=== PATIENT | male | born 1950 | race Caucasian/White ===

== ENCOUNTER 2022-02-08 02:39 | Inpatient (IN) | payer MEDICARE, SELFPAY ==
[2022-02-08] VITALS (12 sets, daily range): BP systolic 136–171; BP diastolic 77–95; PULSE 53–87; RESP 15–22; TEMP 36.1–36.9; O2SAT 96–100; BMI 37.2
--- NOTE | 2022-02-08 | ECHO_ITS ---
Patient Info Name: Alex Kay Jr Age: 71 years : 1950 Gender: Male Ht: 71 in Wt: 240 lbs BSA: 2.37 m2 HR: 61 bpm BP: 136 / 85 mmHg Heart Rhythm: Sinus Rhythm Exam Date: 02/08/2022 11:20 AM Exam Location: [facility] Pulmonary Patient Status: Outpatient Admit Date: 02/08/2022 Staff Ordering Physician: Nayely Strange MD Senior Solutions Engineer: Leland Samuel, DENISE, RT Attending Provider: Cinthia Virk MD Referring Physician: Alie ARCHER; Exam Type: CA echo dop color flow w con Study Info Indications R07.89 - Other chest pain Complete two-dimensional, color flow and Doppler transthoracic echocardiogram is performed with contrast to opacify the left ventricle and to improve the deliniation of the left ventricle endocardial borders. Summary 1. Left ventricular chamber dimension is normal. 2. Left ventricular systolic function is normal, estimated at 65-70%. 3. There is mildly increased left ventricular wall thickness. 4. The left ventricular diastolic function is grade I diastolic dysfunction. 5. Left atrial chamber dimension is mildly enlarged. 6. There is mild mitral valve regurgitation. 7. There is mild tricuspid valve regurgitation. Left Ventricle Left ventricular chamber dimension is normal. Left ventricular systolic function is normal, estimated at 65-70%. There is mildly increased left ventricular wall thickness. The left ventricular diastolic function is grade I diastolic dysfunction. Right Ventricle Right ventricular chamber dimension is normal. Right ventricular systolic function is normal. Left Atria Left atrial chamber dimension is mildly enlarged. Right Atria Right atrial chamber dimension is normal. Atrial Septum Intact interatrial septum visualized by color flow imaging. Aortic Valve The aortic valve is trileaflet. There is mild aortic valve sclerosis. There is no aortic valve stenosis. There is trace aortic valve regurgitation. Pulmonic Valve The pulmonic valve is normal. There is no pulmonic valve stenosis. There is trace pulmonic regurgitation. Mitral Valve The mitral valve has normal leaflets. There is no mitral valve stenosis. There is mild mitral valve regurgitation. Tricuspid Valve The tricuspid valve leaflets are normal. There is no significant tricuspid valve stenosis. There is mild tricuspid valve regurgitation. No pulmonary hypertension, estimated pulmonary arterial systolic pressure is 25 mmHg. Pericardium/Pleural The pericardium appears normal. There is no pericardial effusion. Inferior Vena Cava Normal inferior vena cava with >50% collapse upon inspiration consistent with normal right atrial pressure, 5 mmHg. Aorta The aortic root size at the sinus of Valsalva is normal. Left Ventricular Outflow Tract Name Value Normal LVOT 2D LVOT Diameter 2.10 cm LVOT Doppler LVOT Peak Gradient 6 mmHg LVOT Mean Gradient 3 mmHg LVOT VTI 23.47 cm LVOT VTI/AV VTI Ratio 0.82 LVOT Stroke Volume 81.40 ml
--- NOTE | ~2022-02-08 | US_ITS ---
EXAMINATION: US retroperitoneal comp DATE: 02/09/2022 10:21 INDICATION: Acute kidney injury TECHNIQUE: Multiple grayscale and Doppler ultrasound images of the kidneys were obtained. COMPARISON: CT from yesterday FINDINGS: The right kidney measures 11.1 x 7.2 x 5.8 cm and contains a 2.3 cm cyst. The left kidney m easures 10.1 x 6.2 x 5.0 cm and contains a 1.9 cm cyst. The kidneys demonstrate normal parenchymal ec hogenicity. There is no hydronephrosis. The bladder is normal. IMPRESSION: 1. Bilateral renal cysts, otherwise normal kidneys without hydronephrosis. Reviewed, dictated and finalized at location L.
--- NOTE | ~2022-02-08 | US_ITS ---
EXAMINATION: US carotid duplex BI DATE: 02/08/2022 11:11 INDICATION: Presyncope TECHNIQUE: Grayscale, color Doppler, and pulsed Doppler images of the cervical carotid arteries were obtained. The degree of vessel stenosis is placed in one of the following categories: normal, <50%, 5 0-69%, >=70% but less than near-occlusion, near-occlusion, or total occlusion. Note that percent sten osis relative to normal distal artery lumen diameter is indirectly measured from velocity measurement s as described by Shiva, et al. Radiology 2003; 229:340-346. COMPARISON: None. FINDINGS: RIGHT: The right common carotid artery (CCA) peak systolic velocity (PSV) is 113 cm/s. The right internal ca rotid artery (ICA) PSV is 80 cm/s. The right ICA end-diastolic velocity (EDV) is 24 cm/s. The right I CA/CCA PSV ratio is 0.7. Grayscale and color Doppler images yield an estimate of <50% diameter reduct ion from plaque in the ICA. The external carotid artery (ECA) PSV is 82 cm/s. There is antegrade flow in the right vertebral artery. LEFT: The left CCA PSV is 124 cm/s. The left ICA PSV is 82 cm/s. The left ICA EDV is 30 cm/s. The left ICA/ CCA PSV ratio is 0.7. Grayscale and color Doppler images yield an estimate of <50% diameter reduction from plaque in the ICA. The ECA PSV is 80 cm/s. There is antegrade flow in the left vertebral artery . IMPRESSION: 1. <50% stenosis in the right internal carotid artery. 2. <50% stenosis in the left internal carotid artery. Reviewed, dictated and finalized at location A.
--- NOTE | ~2022-02-08 | XR_ITS ---
EXAMINATION: XR chest 2V DATE: 02/08/2022 03:16 INDICATION: Left-sided chest pain and tightness. TECHNIQUE: PA and lateral views of the chest were obtained. COMPARISON: None FINDINGS: Small calcified nodules at the right midlung zone and left lower lung zone consistent with old granul omatous disease. No focal airspace opacities, pulmonary edema, pleural effusion or pneumothorax. The cardiomediastinal silhouette is normal. Cholecystectomy clips in right upper quadrant. There are brid ging osteophytes at multiple levels in the spine, consistent with diffuse idiopathic skeletal hyperos tosis (DISH). IMPRESSION: 1. No acute cardiopulmonary disease. Reviewed, dictated and finalized at location A.
--- NOTE | ~2022-02-08 | NM_ITS ---
EXAMINATION: NM nagi stress w perfusion DATE: 02/09/2022 09:42 INDICATION: Chest pressure TECHNIQUE: Rest images were obtained following intravenous administration of 11.1 mCi Tc99m tetrofosm in (Myoview). The patient was infused intravenously with Lexiscan (Regadenoson). Then, 35.6 mCi Tc99m tetrofosmin (Myoview) was administered intravenously, and stress images were obtained. Data was elina nstructed into short axis and horizontal and vertical long axis SPECT images. Gated SPECT images were also obtained. COMPARISON: None. FINDINGS: There is no definite reversible or fixed perfusion abnormality to suggest ischemia or infar ction. There is normal left ventricular chamber size, wall motion and ejection fraction. Left ventr icular ejection fraction measures >70%. IMPRESSION: 1. Normal myocardial perfusion at rest and during stress. 2. Left ventricular ejection fraction measuring >70%. Reviewed, dictated and finalized at location A.
--- NOTE | ~2022-02-08 | CT_ITS ---
EXAMINATION: CT abdomen pelvis w con INDICATION: Left lower quadrant pain, elevated lipase TECHNIQUE: Computed tomographic images of the abdomen and pelvis were obtained after the administrati on of 100 cc of Omnipaque 300 intravenous contrast. The dose-length product (DLP) was 1439.19 mGy-cm. Automated exposure control and iterative reconstruction technique were employed. COMPARISON: None available FINDINGS: Minimal dependent atelectasis is present in the lung bases. The heart size is normal. There is calcified coronary artery atherosclerosis. The gallbladder is surgically absent. The liver is dif fusely low in attenuation when compared with the spleen, consistent with hepatic steatosis. There is a subtle 1.5 cm hypoattenuating area in the tail of the pancreas. Cysts of the kidneys measure up to 2.6 cm on the right. No pathologically enlarged abdominal or pelvic lymph nodes are identified. There is no free intraperitoneal gas or evidence of bowel obstruction. There is a surgical anastomosis at the rectosigmoid junction in the colon There are bridging osteophytes at multiple levels in the lower thoracic spine, consistent with diffuse idiopathic skeletal hyperostosis (DISH). . IMPRESSION: 1. Subtle area of hypoattenuation in the tail of the pancreas. The differential diagnosis includes ne oplasm, benign or malignant, and sequela of pancreatitis. Follow-up with by MRI without and with cont rast is recommended. Reviewed, dictated and finalized at location B. IMPRESSION: 1. Subtle area of hypoattenuation in the tail of the pancreas. The differential diagnosis includes neoplasm, benign or malignant, and sequela of pancreatitis. Follow-up with by MRI without and with contrast is recommended.
--- NOTE | 2022-02-08 02:41 | ECG_ITS ---
Measurements Intervals [place] Rate: 74 P: 31 MI: 157 QRS: -5 QRSD: 105 T: 19 QT: 370 QTc: 411 Interpretive Statements SINUS RHYTHM EARLY PRECORDIAL R/S TRANSITION BORDERLINE T WAVE ABNORMALITY- ANTERIOR LEADS BASELINE WANDER- I, II, AVR, AVL, AVF BORDERLINE ECG Electronically Signed On 02-08-2022 7:31:03 CDT by Jaylen Gomes D.O.
[2022-02-08 03:18] LABS: Alanine Aminotransferase 34 U/L (6-50); Albumin Level 4.4 g/dL (3.5-5.1); Alkaline Phosphatase 76 U/L (38-126); Anion Gap 8 mmol/L (8-16); Aspartate Amino Transferase 23 U/L (17-59); Bilirubin,Total 0.7 mg/dL (0.2-1.3); Blood Urea Nitrogen 19 mg/dL (9-20); Calcium 8.3 mg/dL (8.4-10.2); Carbon Dioxide 32 mmol/L (22-30); Chloride 101 mmol/L (98-107); Estimated Glomerular Filt Rate 50; Glucose 127 mg/dL (65-110); Lipase 404 U/L (23-300); Potassium 4.3 mmol/L (3.4-5.0); Sodium 141 mmol/L (137-145)
[2022-02-08 03:21] LABS: Basophils Percent Auto 0.4 % (0.2-1.2); Eosinophils Absolute Auto 0.2 K/mm3 (0-0.3); Eosinophils Percent Auto 2.2 % (0-4.4); Hematocrit 49.3 % (42.0-52.0); Hemoglobin 15.7 g/dL (14.0-18.0); Immature Granulocyte Absolute 0.01 K/mm3 (0.00-0.031); Immature Granulocyte Percent A 0.1 % (0-0.5); Lymphocytes Absolute Auto 1.25 K/mm3 (0.9-3.2); Lymphocytes Percent Auto 18.1 % (18.3-44.2); Mean Corpuscular HGB Conc 31.8 g/dl (32-36); Mean Corpuscular Hemoglobin 29.6 pg (26-34); Mean Platelet Volume 9.7 fl (7.4-10.4); Monocytes Absolute Auto 0.7 K/mm3 (0.1-0.6); Monocytes Percent Auto 10.7 % (2.6-8.5); Neutrophils Absolute Auto 4.7 K/mm3 (1.3-6.7); Neutrophils Percent Auto 68.5 % (45.5-73.1); Platelet Count Result 261 k/mm3 (150-375); Red Cell Distribution Width 13.2 % (11.5-14.5); White Blood Count 6.9 K/mm3 (4.5-10.0)
[2022-02-08 03:26] LABS: Prothrombin Time 12.8 Seconds (11.1-14.7)
[2022-02-08 03:27] LABS: Partial Thromboplastin Time 27.5 SECONDS (22.3-36.8); Troponin I < 0.012 ng/mL (0.000-0.034)
--- NOTE | 2022-02-08 03:39 | ED.CHESTPAIN ---
HPI - Chest Pain General Chief Complaint: Chest Pain Stated Complaint: chest pain Time Seen by Provider: 02/08/22 02:44 History of Present Illness HPI narrative: 71-year-old male with no prior history of ACS/VT presents with several days of intermittent episodes of chest pain, he describes it as pressure on the left side, that is nonradiating, his last episode today started when he was gardening and he started feeling as if he was going to pass out, and describes some mild shortness of breath, nausea, and diaphoresis, which all resolved after he went back into his house and rested. No recent cough, fevers or chills, has never had symptoms like this in the past, he thought initially might be muscle pain but he does not recall straining any muscle and the symptoms have not improved. Related Data Home Medications Medication Instructions Recorded Confirmed acetaminophen 500 mg tablet 1,000 mg PO Q8H 05/08/19 07/22/20 amlodipine 10 mg tablet 10 mg PO DAILY 05/08/19 07/22/20 aspirin 81 mg tablet,delayed 81 mg PO DAILY 05/08/19 07/22/20 release (Aspir-) levothyroxine 175 mcg tablet 175 mcg PO DAILY 05/08/19 07/22/20 magnesium oxide 400 mg PO DAILY 05/08/19 07/22/20 montelukast 10 mg tablet 10 mg PO HS 05/08/19 07/22/20 omeprazole 40 mg capsule,delayed 40 mg PO DAILY 05/08/19 07/22/20 release Allergies Allergy/AdvReac Type Severity Reaction Status Date / Time No Known Allergies Allergy Verified 07/22/20 10:02 Review of Systems Review of Systems: CONST: No fever. HEENT: No sore throat C/V: Chest pain RESP: No cough GI: Occasional left lower quadrant pain : No dysuria. M/S: No joint pain. SKIN: No rash. NEURO: Presyncope PSYCH: [No depression] [facility] Past Medical History Medical History (Updated 02/08/22 @ 06:48 by Jemma Mendoza MD) Sinus bradycardia Surgical History Surgical History (Updated 02/08/22 @ 03:45 by Jemma Mendoza MD) H/O thyroidectomy Exam Narrative: EXAMINATION OF ORGAN SYSTEMS/BODY AREAS: Constitutional: Vital signs per nursing GENERAL:[No acute distress, non-toxic appearing.] HEAD: Normal with no signs of head trauma. EYES: EOMI, conjunctiva normal ENT: Hearing grossly intact LUNGS: Nonlabored breathing. HEART: [Regular rate and rhythm] ABD: [Soft], [nontender to palpation] EXT: Normal range of motion SKIN: [No rashes or lesions.] NEURO: [Alert and oriented x 3. No gross focal sensory or strength deficits.] PSYCH: Normal affect Course Vital Signs Vital signs: Vital Signs Temperature 97.8 F 02/08/22 02:47 Pulse Rate 76 02/08/22 02:47 Respiratory Rate 17 02/08/22 02:47 Blood Pressure 171/94 H 02/08/22 02:47 Pulse Oximetry 98 02/08/22 02:47 Oxygen Delivery Room Air 02/08/22 02:47 Temperature 97.8 F 02/08/22 02:47 Pulse Rate 74 02/08/22 02:55 Respiratory Rate 17 02/08/22 02:47 Blood Pressure 171/94 H 02/08/22 02:47 Pulse Oximetry 98 02/08/22 02:47 Oxygen Delivery Room Air 02/08/22 02:47 MDM - Chest Pain MDM Narrative Medical decision making narrative: 71-year-old male presenting with 7 days of vague chest pain and presyncope, vital signs stable here other than elevated pressure, on exam he is well-appearing, resting comfortably, normal cardiopulmonary exam. My concern is for possible ACS/VT or arrhythmia, versus possible infection or dehydration. Labs notable for elevated lipase, he on reevaluation states that he is only having some minimal tenderness to the left lower side which he states happened sometimes with diverticulitis. Given this I will obtain a CT abdomen/pelvis to evaluate his pancreas and for diverticulitis. CT unremarkable; patient will be admitted, dw Dr Virk. Lab Data Result diagrams: 02/08/22 02:57 02/08/22 02:57 Labs: Lab Results 02/08/22 02/08/22 02/08/22 Range/Units 02:57 02:57 02:57 WBC 6.9 (4.5-10.0) K/mm3 RBC 5.30 (4.6-6.20) M/mm3 Hgb 15.7 (14.0-
[2022-02-08 07:48] LABS: Troponin I 0.014 ng/mL (0.000-0.034)
--- NOTE | 2022-02-08 08:19 | PM.IMHP ---
H&P: HPI History of Present Illness Date/Time: 02/08/22 08:19 Chief Complaint: chest pressure Narrative: 71M with a past medical history of cardiac arrest, thyroid cancer s/p thyroidectomy and 3/4 parathyroidectomy, seasonal allergies, obstructive sleep apnea, hypertension who presents with chest pressure. Patient says he noticed some tightness and pressure on the left side of his chest, intermittently for the past 3-4 days. He said he did not think much of it until yesterday he was working in his garden and suddenly felt like he was about to pass out. Also endorses lightheadedness at this time. He had to stop working and go sit in his truck to cool down. After cooling down he felt fine. He went to bed and woke around 0230 this morning and felt the chest pressure on the left side of his chest again, so he decided to drive the 45 miles from his house to come to [place] emergency department. Patient denies any of the chest pressure episodes being associated with exertion saying they all occurred while he was at rest. He is very active in his vegetable garden on his [address] [place]. Patient denies palpitations, acute vision changes, leg swelling, abdominal pain, melena, hematochezia, dysuria, hematuria. Has rhinorrhea with seasonal allergies. Denies sore throat, cough. Also patient has a remote history of a cardiac arrest related to the use of propofol during a colonoscopy. In the emergency department, first troponin negative, aspirin 324 mg given. Review of Systems Constitutional: Constitutional: Denies weakness Eyes: Eyes: Denies blurry vision ENT: Reports nasal discharge Cardiovascular: Cardiovascular: Denies leg edema, Reports lightheadedness and Denies palpitations Gastrointestinal: Gastrointestinal: Denies abdominal pain, Denies melena, Denies hematochezia, Denies nausea and Denies vomiting Genitourinary: Genitourinary: Denies hematuria and Denies dysuria Musculoskeletal: Musculoskeletal: Denies myalgias PMFSH Past Medical History Medical History (Updated 02/08/22 @ 12:05 by Nayely Strange MD) Acquired hypothyroidism Cardiac arrest From Propofol during colonoscopy Hypertension Obstructive sleep apnea Sinus bradycardia Thyroid cancer Surgical History Surgical History (Updated 02/08/22 @ 11:46 by Nayely Strange MD) H/O thyroidectomy History of bowel resection Family History Family History (Updated 02/08/22 @ 12:16 by Nayely Strange MD) Sibling No problems noted. Father Heart disease Social History Social History (Updated 02/08/22 @ 11:47 by Nayely Strange MD) Smoking status: Never smoker Alcohol intake: current Drinks per week: 6 Living arrangements: with family Occupation/Education: retired Meds Home Medications and Allergies Home Medications Medication Instructions Recorded Confirmed Type acetaminophen 500 mg tablet 1,000 mg PO PRN 05/08/19 02/08/22 History amlodipine 10 mg tablet 10 mg PO BID 05/08/19 02/08/22 History levothyroxine 175 mcg tablet 200 mcg PO DAILY 05/08/19 02/08/22 History magnesium oxide 400 mg PO DAILY 05/08/19 02/08/22 History montelukast 10 mg tablet 10 mg PO HS 05/08/19 02/08/22 History omeprazole 40 mg capsule,delayed 40 mg PO DAILY 05/08/19 02/08/22 History release Diana Allergy 1 tablet PO DAILY 02/08/22 02/08/22 History B Complex-Vitamin B12 1 tablet PO DAILY 02/08/22 02/08/22 History benazepril 10 mg tablet 10 mg PO BID 02/08/22 02/08/22 History calcium citrate 1 tablet PO DAILY 02/08/22 02/08/22 History multivitamin-zinc ascorbate 1 tablet PO DAILY 02/08/22 02/08/22 History Allergies Allergy/AdvReac Type Severity Reaction Status Date / Time zolpidem [From Ambien] AdvReac Hallucinati Verified 02/08/22 08:36 ng Vital Signs Vital Signs - 24 hr 02/08/22 02:47 02/08/22 02:55 02/08/22 07:24 Temperature 97.8 F Pulse Rate 76 74 65 Respiratory Rate 17 17 Blood Pressure 171/94 H 163/95 H Pulse Oximetry 9
--- NOTE | 2022-02-08 08:22 | ADMGEN ---
This patient, Alex Kay , was admitted to 3 [facility] S[facility] Room 310-01. Patient/family oriented to hospital policies and general routines including ID bracelet, bed and alarms, visiting hours, pain management, procedures, bathroom and other care routines, personal items, smoking policy, room service/diet, and visiting hours. Information on how to activate the Rapid Response Team has been discussed. Patient/Family are encouraged to report perceived risks to care and to ask questions if they do not understand what they are told or what they should do.
--- NOTE | 2022-02-08 08:46 | PC.NURSE ---
admission done, patient laying in bed and able to answer all questions, plan of care discussed and will wait on cardiology, he sees dr lacey in office. all valuable are at home. updated on new room
[2022-02-08 09:41] LABS: Troponin I < 0.012 ng/mL (0.000-0.034)
--- NOTE | 2022-02-08 11:10 | ECG_ITS ---
Measurements Intervals [place] Rate: 63 P: 52 [place]: 156 QRS: -20 QRSD: 105 T: 11 QT: 380 QTc: 390 Interpretive Statements SINUS RHYTHM INFERIOR INFARCT, AGE INDETERMINATE BORDERLINE T WAVE ABNORMALITY- ANTERIOR LEADS BASELINE ARTIFACT- I, II, AVR, AVL, AVF, V1 ABNORMAL ECG Electronically Signed On 02-08-2022 12:08:41 CDT by Jaylen Gomes D.O.
[2022-02-08] MEDS: PERFLUTREN LIPID MICROSPHERES 1.5 ML VIAL DILUTED TO 10 ML TOTAL VOLUME IV PUSH (11:32)
--- NOTE | 2022-02-08 11:33 | IVDEFINITY ---
Prior to administration of IV Definity the patient was educated on the risks and benefits of the imaging enhancing agent including potential adverse side effects. The patient verbalized understanding. Allergies were verified. No exclusion criteria were identified and at least one of the following inclusion criteria were met: 1) physician request, 2) patient technically difficult to image (per the [place] [employer]ocardi[employer] guidelines of two or more segments not discernable within the apical view), or 3) questionable left ventricular function. ?
[2022-02-08 13:22] LABS: Free T4 Free Thyroxine 1.72 ng/mL (0.78-2.19)
[2022-02-08] MEDS: WATER FOR IRRIGATION, STERILE 1,000 ML BOTTLE 1000 ML (15:32)
[2022-02-08 16:17] LABS: Creatinine Urine 28.5 mg/dL
[2022-02-08 16:26] LABS: Sodium Urine Random 54 meq/L
[2022-02-08] MEDS: MONTELUKAST SODIUM 10 MG TABLET PO (21:34)
[2022-02-08] MEDS: METOPROLOL TARTRATE 6.25 MG TABLET PO (21:37)
[2022-02-09] VITALS (10 sets, daily range): BP systolic 153–158; BP diastolic 84–97; PULSE 48–84; RESP 16–20; TEMP 36.1–36.3; O2SAT 96–99
--- NOTE | 2022-02-09 05:00 | ECG_ITS ---
Measurements Intervals [place] Rate: 63 P: 35 [place]: 158 QRS: -8 QRSD: 104 T: 20 QT: 380 QTc: 391 Interpretive Statements SINUS RHYTHM EARLY PRECORDIAL R/S TRANSITION CONSIDER INFERIOR INFARCT, AGE INDETERMINATE ABNORMAL ECG Electronically Signed On 02-09-2022 9:48:18 CDT by Jaylen Gomes D.O.
[2022-02-09] MEDS: LEVOTHYROXINE SODIUM 100 MCG TABLET 200 MCG PO (06:18)
[2022-02-09 06:43] LABS: Anion Gap 8 mmol/L (8-16); Blood Urea Nitrogen 15 mg/dL (9-20); Calcium 8.5 mg/dL (8.4-10.2); Carbon Dioxide 31 mmol/L (22-30); Chloride 102 mmol/L (98-107); Cholesterol 146 mg/dL (0-200); Estimated CRCL calculation 51 ml/min; Estimated Glomerular Filt Rate 46; Glucose 110 mg/dL (65-110); HDL Direct 40 mg/dL; Potassium 4.4 mmol/L (3.4-5.0); Sodium 141 mmol/L (137-145); Triglycerides 170 mg/dL (<150)
[2022-02-09 06:54] LABS: LDL Cholesterol Direct 69 mg/dL
--- NOTE | 2022-02-09 07:34 | EST_ITS ---
Patient Info Name: Alex Kay Jr Age: 71 years : 1950 Gender: Male Ht: 68 in Wt: 244 lbs BSA: 2.35 m2 HR: 65 bpm BP: 131 / 97 mmHg Heart Rhythm: Sinus Rhythm Exam Date: 02/09/2022 8:14 AM Exam Location: [facility] Stress Patient Status: Inpatient Admit Date: 02/08/2022 Staff Ordering Physician: Nayely Strange MD Attending Provider: Cinthia Virk MD Exercise Technologist: Damaris Packer CT Nurse: JHONNY BOYCE Exam Type: CA stress nagi w NM Study Info Indications R07.9 - Chest pain, unspecified A regadenoson stress test was performed. Summary 1. Normal sinus rhythm. 2. Incomplete right bundle branch block. 3. No ST or T changes following Lexiscan injection. 4. None. 5. Clinically and electrocardiographically negative Lexiscan stress test. 6. Myocardial perfusion imaging exam to be reported by Radiology. Protocol: Lexiscan Stress ECG Details Stage: REST Duration (min): 1 min : 0 sec HR (bpm): 61 SBP (mmHg): 131 DBP (mmHg): 97 Stage: REST Duration (min): 7 min : 32 sec HR (bpm): 67 SBP (mmHg): 131 DBP (mmHg): 97 Stage: STAGE 1 Duration (min): 1 min : 0 sec HR (bpm): 91 SBP (mmHg): 148 DBP (mmHg): 82 Stage: RECOVERY Duration (min): 1 min : 0 sec HR (bpm): 92 SBP (mmHg): 148 DBP (mmHg): 82 Stage: RECOVERY Duration (min): 2 min : 0 sec HR (bpm): 91 SBP (mmHg): 148 DBP (mmHg): 82 Stage: RECOVERY Duration (min): 3 min : 0 sec HR (bpm): 90 SBP (mmHg): 147 DBP (mmHg): 81 Stage: RECOVERY Duration (min): 3 min : 18 sec HR (bpm): 87 SBP (mmHg): 147 DBP (mmHg): 81 Rest HR: 67 bpm Peak HR: 103 bpm Rest Sys BP: 131 mmHg Peak Sys BP: 148 mmHg Max Pred HR: 151 bpm % Max Pred HR: 68 % Target HR: 128 bpm Max RPP: 15,244 bpm*mmHg Total Time: 1 min : 0 sec Rest [place] BP: 97 mmHg Peak [place] BP: 82 mmHg Total Dose: 0.4 mg Resting ECG Normal sinus rhythm. Incomplete right bundle branch block. Stress ECG No ST or T changes following Lexiscan injection. Arrhythmias None. Report Signatures
--- NOTE | 2022-02-09 07:56 | PM.IMPN ---
Progress Note: A&P Assessment and Plan (1) Chest pain: Code(s): R07.9 - Chest pain, unspecified Status: Acute Assessment and Plan: Troponin negative. Saw Dr. Durbin about a year ago and reports having an echo in 2019. The pain is reproducible, but patient does have a hx of cardiac arrest related to a medication. Echo w/EF 65-70%, grade I diastolic dysfunction, left atrial enlargement. Lexiscan with no ischemia. -Has appointment with Cardiology, Dr. Durbin 03/05 (2) Pre-syncope: Code(s): R55 - Syncope and collapse Status: Acute Assessment and Plan: May have been relate to heat exhaustion. Carotid US < 50% stenosis bilaterally. Echo as noted above. Was likely vasovagal vs heat exhaustion. (3) Acute kidney injury: Code(s): N17.9 - Acute kidney failure, unspecified Status: Acute Assessment and Plan: Baseline creatinine 1.10 and today is 1.40 and has chronic CO2 retention due to NATALI. Fena intrnsic. Creatinine up to 1.5 today. -Nephrology consult (4) Acquired hypothyroidism: Code(s): E03.9 - Hypothyroidism, unspecified Status: Acute Assessment and Plan: Hx of thyroid cancer s/p total thyroidectomy and 3/4 parathyroids removed. Thyroid labs normal. -Continue levothyroxine (5) Obstructive sleep apnea: Code(s): G47.33 - Obstructive sleep apnea (adult) (pediatric) Status: Acute Assessment and Plan: Patient reports he got the best sleep he has had in many years overnight using the hospital CPAP machine. Patient believes his CPAP machine is not working properly. Patient did not like the idea that he would have to have another sleep study to evaluate his need for setting adjustment. Plan Full Code is contact Enoxaparin prophylaxis Subjective Date/time seen: 02/09/22 07:56 Patient says he feels great and wants to home. Denies chest pain, shortness of breath, difficulty breathing. Says he takes aleve frequently for this arthritis pain. Review of Systems Cardiovascular: Cardiovascular: Denies chest pain Respiratory: Respiratory: Denies dyspnea Musculoskeletal: Musculoskeletal: Reports arthralgias Exam Narrative: GENERAL: NAD, cooperative HEENT: Normocephalic, atraumatic, anicteric NECK: No thyromegaly, no lymphadenopathy Chest: Normal S1, S2, RRR, No MRG, RESP: CTAB, Normal work of breathing. EXTREMITIES: Warm and well perfused, no clubbing, cyanosis, or edema. SKIN: warm, dry and intact. NEURO: CN 2-12 grossly intact. Objective Data Vital Signs Vital Signs: Vital Signs - 24 hr 02/08/22 08:05 02/08/22 08:27 02/08/22 08:15 Temperature 97.0 F L Pulse Rate 62 53 L Respiratory Rate 17 16 Blood Pressure 136/85 Pulse Oximetry 98 99 Oxygen Delivery Room Air 02/08/22 08:10 02/08/22 14:00 02/08/22 12:00 Temperature 98.5 F Pulse Rate 80 66 70 Respiratory Rate 15 Blood Pressure 151/94 H Pulse Oximetry 98 Oxygen Delivery 02/08/22 16:00 02/08/22 22:00 02/08/22 22:20 Temperature 98.2 F Pulse Rate 81 63 87 Respiratory Rate 18 22 H Blood Pressure 140/77 Pulse Oximetry 100 96 Oxygen Delivery Autopap 02/09/22 02:03 02/08/22 20:00 02/09/22 00:00 Temperature Pulse Rate 53 L 51 L Respiratory Rate 19 Blood Pressure Pulse Oximetry Oxygen Delivery Autopap 02/09/22 04:00 02/09/22 06:00 Temperature 96.9 F L Pulse Rate 48 L 57 L Respiratory Rate 18 Blood Pressure 153/90 H Pulse Oximetry 99 Oxygen Delivery Intake/Output Intake/Output: Intake & Output 02/06/22 02/07/22 02/08/22 02/09/22 23:59 23:59 23:59 23:59 Intake Total 1140 0 Output Total 500 Balance 640 0 Meds/Results Medications: Active Medications Generic Name Dose Route Start Last Admin Trade Name Freq PRN Reason Stop Dose Admin Acetaminophen 1,000 mg 02/08/22 11:10 Acetaminophen 500 Mg Tablet PO Q6H PRN
[2022-02-09] MEDS: THERAPEUTIC MULTIVITAMINS/MINERALS TAB (*BKC) 1 TABLET PO (09:26)
[2022-02-09] MEDS: PANTOPRAZOLE 40 MG TABLET PO ×2 (09:26→20:36)
--- NOTE | 2022-02-09 10:49 | PM.CNNEP ---
Assessment and Plan Additional Plan 1. Alex has an elevated creatinine. His creatinine was normal in July of 2018. We do not have any creatinine is in between then and now. We will check with his primary care physician to see if there are any creatinine levels available. His creatinine was elevated on admission. Renal ultrasound was normal. Urine electrolytes are non pre renal. Assuming his baseline creatinine is still normal, this may be due to dehydration as he was weak and dizzy when outside the prior morning. He also was taking Aleve which can make any contribution by dehydration more exaggerated with regards to the elevation of the creatinine. He did receive some contrast but his creatinine did not rise much after that so we can not blame all of this on just the contrast. He has had 4 voids overnight but these were not measured. At this point will get urinalysis. Will give IV fluids. Will repeat a creatinine in the morning. 2. The patient has hypertension. This is well controlled. 3. Patient has sleep apnea and is using his CPAP machine from the hospital. He says it works better than the 1 he had at home. 4. The patent patient had chest pain. This is in the middle of evaluation by Dr. Strange. Discussed with Dr. Strange. History of Present Illness Reason for Consult Consult date: 02/09/22 Chief Complaint Chief complaint: CP/ACS History of Present Illness Narrative: Nicolas is a very pleasant 71-year-old gentleman who has multiple medical problems including obstructive sleep apnea, hypertension, history of thyroid cancer, history of brain tumor status post resection, hypothyroidism, and cardiac arrest from propofol. The patient said he was fine until the day before admission when he went outside to work in his garden. After about a 1/2hour he became woozy and went to his truck to sit in the air conditioning. He did get much better so he drove himself home. He gradually improved a little bit. He went to bed and at about midnight he woke up feeling poorly. He had left armpit pain and became scared so he decided to come to the ER. He was evaluated in the emergency room. He had an abdominal pelvic CT scan with contrast. This did not show anything acute however he did have a subtle area of hypoattenuation at the tail of the pancreas. His creatinine was elevated 1.4 yesterday. He was felt to be dehydrated so received some IV fluids but the creatinine was higher today at 1.5 so renal consultation was requested. The patient takes Aleve about 3 times a week he says for arthritis. He has a history of hypertension which has been well controlled. He has never had a history of kidney disease in the past. He does not have any bloody urine foamy urine kidney stones bladder infections or painful urination. Review of Systems Constitutional: Constitutional: Reports no additional constitutional complaints Eyes: Eyes: Reports no additional eye complaints ENT: Reports system reviewed and no additional complaints, except as documented Cardiovascular: Cardiovascular: Reports no additional cardiovascular complaints Respiratory: Respiratory: Reports no additional respiratory complaints Gastrointestinal: Gastrointestinal: Reports no additional gastrointestinal complaints Genitourinary: Genitourinary: Reports no additional male genitourinary complaints Musculoskeletal: Musculoskeletal: Reports no additional musculoskeletal complaints Integumentary/Breasts: Skin/Breast: Reports system reviewed and no additional complaints, except as docu Neurologic: Reports system reviewed and no additional complaints, except as documented Psychiatric: Psychiatric: Reports no additional psychiatric complaints Endocrine: Endocrine: Reports no additional endocrine complaints PMFSH Past Medical History Medical History Acquired hypothyroidism Cardiac arrest From Propofol d
[2022-02-09 11:34] LABS: Creatine Kinase 86 U/L (55-170)
[2022-02-09] MEDS: SODIUM CHLORIDE 0.9% IV 1,000 ML 75 ML IV CONT (11:40)
[2022-02-09] MEDS: LORATADINE 10 MG TABLET PO (12:29)
[2022-02-09] MEDS: MAGNESIUM OXIDE 400 MG TABLET PO (12:29)
[2022-02-09] MEDS: VITAMIN B COMPLEX CAPSULE 1 CAP PO (12:29)
--- NOTE | 2022-02-09 12:55 | PC.NURSE ---
pt stated that he is leaving at 4pm while this nurse started iv fluids. this nurse explained to the pt that the drs want him to stay another night to get iv fluids and recheck labs in the am. pt again stated that he will be leaving around 4, and is not staying another night. Dr. Strange made aware, due to pt stating Dr. Strange said i can leave . This nurse spoke with , who stated that she did not say that she stated to the pt that if the pt needs to stay another night then he needs to stay, and went over information about AMA. While this nurse was present in the room, this nurse went over information about AMA and that if the pt leaves then most likely the insurance will not cover anything done at the hospital and encouraged pt to stay one more night.
[2022-02-09 16:43] LABS: Appearance Urine Clear (Clear); Bilirubin Urine Negative (Negative); Blood Urine Negative (Negative); Color Urine Yellow (Yellow); Glucose Urine UA Negative (Negative); Ketones Urine Negative (Negative); Leukocyte Esterase Ur Negative LEU/UL (NEGATIVE); Nitrate Urine Negative (Negative); Protein Urine Negative (Negative); Urobilinogen Urine 0.2 mg/dL (<2.0)
[2022-02-09 16:49] LABS: Add Urine Microscopic? NO
--- NOTE | 2022-02-09 16:53 | PC.NURSE ---
called to update that pt was stating about leaving [facility] due to not wanting to stay here. provider stated that pts ct has increased and needs the fluids.
[2022-02-09] MEDS: MONTELUKAST SODIUM 10 MG TABLET PO (20:36)
[2022-02-10] VITALS: PULSE 51
[2022-02-10 04:00] VITALS: PULSE 72
[2022-02-10] MEDS: ACETAMINOPHEN 500 MG TABLET 1000 MG PO (04:07)
[2022-02-10] MEDS: LEVOTHYROXINE SODIUM 100 MCG TABLET 200 MCG PO (04:10)
[2022-02-10 06:00] VITALS: BP 133/92; PULSE 57; RESP 16; TEMP 36.6; O2SAT 94
[2022-02-10 08:15] LABS: Albumin Level 4.1 g/dL (3.5-5.1); Anion Gap 6 mmol/L (8-16); Blood Urea Nitrogen 16 mg/dL (9-20); Carbon Dioxide 27 mmol/L (22-30); Chloride 106 mmol/L (98-107); Estimated CRCL calculation 51 ml/min; Estimated Glomerular Filt Rate 46; Glucose 122 mg/dL (65-110); Phosphorus 3.7 mg/dL (2.5-4.5); Potassium 4.5 mmol/L (3.4-5.0); Sodium 139 mmol/L (137-145)
[2022-02-10] MEDS: MAGNESIUM OXIDE 400 MG TABLET PO (08:59)
[2022-02-10] MEDS: VITAMIN B COMPLEX CAPSULE 1 CAP PO (09:00)
[2022-02-10] MEDS: THERAPEUTIC MULTIVITAMINS/MINERALS TAB (*BKC) 1 TABLET PO (09:00)
[2022-02-10] MEDS: LORATADINE 10 MG TABLET PO (09:00)
[2022-02-10] MEDS: PANTOPRAZOLE 40 MG TABLET PO (09:00)
[2022-02-10] MEDS: amLODIPine BESYLATE 5 MG TABLET PO (09:00)
--- NOTE | 2022-02-10 09:02 | PC.NURSE ---
pt refuses to allow IV fluids to run. Pt states he has had enough. I attempted to explain to him why they were ordered and persuade him to allow me to restart the fluids; however, he stated, my arm hurts, it swells up, I don't want them, I've had enough of them.
--- NOTE | 2022-02-10 11:51 | PM.PNNEP ---
Progress Note: A&P Additional Plan 1. Alex has an elevated creatinine. renal ultrasound is normal urine electrolytes are non pre renal UA is bland platelet count is normal CK is normal His creatinine was normal in July of 2018. We do not have any creatinine in between then and now. additional labs were requested from PCP but they have not come in. He could have chronic kidney disease from hypertension with a baseline creatinine of 1.5 One possibility is that he was dehydrated on admission and contrast is just delaying the recovery. If so the creatinine will come down on its own. The creatinine did not rise and his urine is bland it is unlikely the he has some sort of a glomerulonephritis. IV fluids did not fix his creatinine. Because the patient is so eager to go home I think it would be okay to discharge him but then get a creatinine on Saturday and to be sure that it does not start rising without us knowing about it. I told to make an appointment in my office unless the creatinine comes down to normal. 2. The patient has hypertension. This is well controlled. 3. Patient has sleep apnea and is using his CPAP machine from the hospital. He says it works better than the 1 he had at home. 4. The patent patient had chest pain. Evaluation per Dr. Strange. Discussed with Dr. Strange. Subjective Date/time seen: 02/10/22 11:51 Interval history: Alex is feeling better today. He has upper and around in fully dressed. His is in the room. He is urinating fine. Review of Systems Cardiovascular: Cardiovascular: Reports no additional cardiovascular complaints Respiratory: Respiratory: Reports no additional respiratory complaints Gastrointestinal: Gastrointestinal: Reports no additional gastrointestinal complaints Genitourinary: Genitourinary: Reports no additional male genitourinary complaints Exam Narrative: WDWN in NAD skin no rash head ncat lungs clear bilaterally cor reg no rub abd BS+ nontender and soft ext no edema. Objective Data Vital Signs Vital Signs: Vital Signs - 24 hr 02/09/22 16:00 02/09/22 14:00 02/09/22 20:00 Temperature 36.3 C L Pulse Rate 82 84 68 Respiratory Rate 20 Blood Pressure 155/97 H Pulse Oximetry 99 Oxygen Delivery 02/09/22 22:00 02/09/22 20:00 02/10/22 00:00 Temperature 36.3 C L Pulse Rate 63 63 51 L Respiratory Rate 16 16 Blood Pressure 158/84 H Pulse Oximetry 97 97 Oxygen Delivery Room Air 02/10/22 04:00 02/09/22 23:30 02/10/22 06:00 Temperature 36.6 C Pulse Rate 72 55 L 57 L Respiratory Rate 19 16 Blood Pressure 133/92 H Pulse Oximetry 96 94 Oxygen Delivery Autopap 02/10/22 08:00 Temperature Pulse Rate Respiratory Rate Blood Pressure Pulse Oximetry Oxygen Delivery Room Air Intake/Output Intake/Output: Intake & Output 02/07/22 02/08/22 02/09/22 02/10/22 23:59 23:59 23:59 23:59 Intake Total 1140 1360 1555 Output Total 500 750 Balance 640 1360 805 Meds/Results Medications: Active Medications Generic Name Dose Route Start Last Admin Trade Name Freq PRN Reason Stop Dose Admin Acetaminophen 1,000 mg 02/08/22 11:10 02/10/22 04:07 Acetaminophen 500 Mg Tablet PO 1,000 mg Q6H PRN Administration Pain Amlodipine Besylate 5 mg 02/10/22 09:00 02/10/22 09:00 Amlodipine Besylate 5 Mg Tablet PO 5 mg BID MIQUEL Administration Sodium Chloride 1,000 mls @ 75 mls/hr 02/09/22 11:25 02/10/22 07:48 Normal Saline Iv IV CONT Not Given .[id number] MIQUEL Levothyroxine Sodium 200 mcg 02/08/22 12:00 02/10/22 04:10 Levothyroxine Sodium 100 Mcg Tablet PO 200 mcg DAILY@0630 MIQUEL Administration Loratadine 10 mg 02/09/22 09:00 02/10/22 09:00 Loratadine 10 Mg Tablet PO 10 mg DAILY MIQUEL Administration Magnesium Oxide 400 mg 02/09/22 09:00 02/10/22 08:59 Magnesium Oxide 400 Mg Tablet PO 400 mg DAILY MIQUEL Administratio
--- NOTE | 2022-02-10 13:18 | PM.DS ---
DS: Admitting Diagnosis Discharge Date 02/10/22 Admitting Diagnosis Chest Pain DS: Discharge Diagnosis Discharge Diagnosis (1) Chest pain: Code(s): R07.9 - Chest pain, unspecified Status: Acute Assessment and Plan: Troponin negative. Saw Dr. Durbin about a year ago and reports having an echo in 2019. The pain is reproducible, but patient does have a hx of cardiac arrest related to a medication. Echo w/EF 65-70%, grade I diastolic dysfunction, left atrial enlargement. Lexiscan with no ischemia. -Has appointment with Cardiology, Dr. Durbin 03/12/22 at 0915 (2) Pre-syncope: Code(s): R55 - Syncope and collapse Status: Acute Assessment and Plan: May have been relate to heat exhaustion. Carotid US < 50% stenosis bilaterally. Echo as noted above. Was likely vasovagal vs heat exhaustion. (3) Acute kidney injury: Code(s): N17.9 - Acute kidney failure, unspecified Status: Acute Assessment and Plan: Baseline creatinine 1.10 and today is 1.40 and has chronic CO2 retention due to NATALI. Fena intrnsic. Creatinine remains at 1.5. Discussed patient with Nephrology and communicated with the patient about the plan. Will recheck renal function panel on 02/12/22 and again on 02/15/22. Patient verbalized understanding of the plan. -If renal function panel does not improve or worsens, will have follow up appointment with Nephrology (4) Acquired hypothyroidism: Code(s): E03.9 - Hypothyroidism, unspecified Status: Acute Assessment and Plan: Hx of thyroid cancer s/p total thyroidectomy and 3/4 parathyroids removed. Thyroid labs normal. -Continue levothyroxine (5) Obstructive sleep apnea: Code(s): G47.33 - Obstructive sleep apnea (adult) (pediatric) Status: Acute Assessment and Plan: Patient reports he got the best sleep he has had in many years overnight using the hospital CPAP machine. Patient believes his CPAP machine is not working properly. Patient did not like the idea that he would have to have another sleep study to evaluate his need for setting adjustment. Plan Full Code is contact Enoxaparin prophylaxis DS: Summary Hospital Course Reason for hospitalization: Chest Pressure and presyncope Hospital Course: 71M with a past medical history of cardiac arrest, thyroid cancer s/p thyroidectomy and 3/4 parathyroidectomy, seasonal allergies, obstructive sleep apnea, hypertension who presented to the emergency department because of chest pressure and feeling like he was about to pass out. Patient already follows with Dr. Durbin. Serial troponin remained negative. Echocardiogram, carotid ultrasound and lexiscan were ordered due to patient history of cardiac arrest a few years ago. Patient was incidentally found to have a creatinine of 1.5, which was above the 1.10 from April 2019. Fractional excretion of urea was intrinsic, so Nephrology was consulted and a renal ultrasound was ordered. Echo showed EF 65-70%, left atrial enlargement, grade I diastolic dysfunction. Carotid duplex shoed <50% stenosis in the left and right internal jugular. Lexiscan showed normal myocardial perfusion at rest and during stress. Renal ultrasound was unremarkable and Nephrology recommended hydration with intravenous fluids. Repeat creatinine he next morning was unchanged at 1.5. Nephrology recommended patient have a renal function panel on Saturday, February 12/2022 and , February 15, 2022. Patient agreed to have these labs completed and follow up with [facility] if the numbers worsen or do not improve. Patient discharged to home on home medications. Time Spent with Patient Time attestation: Total time spent providing and/or coordinating discharge services: Exam Narrative: GENERAL: NAD, cooperative HEENT: Normocephalic, atraumatic, anicteric NECK: Supple Chest: Normal S1, S2, RRR, No MRG
== END 2022-02-10 14:30 | disposition home or self-care (01) | DRG 313 ==
LOC: ANHED 06:47 → ANH3MEDSUR 07:31
PROVIDERS: Internal Medicine Nephrology; Admitting Provider Internal Medicine; Emergency Provider Emergency Medicine; Visit Provider Family Medicine
DX: R07.9 Chest pain, unspecified (principal); N17.9 Acute kidney failure, unspecified; R55 Syncope and collapse; E89.0 Postprocedural hypothyroidism; G47.33 Obstructive sleep apnea (adult) (pediatric); I10 Essential (primary) hypertension; J30.2 Other seasonal allergic rhinitis; Z79.899 Other long term (current) drug therapy; Z85.850 Personal history of malignant neoplasm of thyroid; Z86.74 Personal history of sudden cardiac arrest
CPT/HCPCS: 36415; 71046; 74177; 76770; 78452; 80048; 80053; 80061; 80069; 81003; 82550; 82570; 83690; 84300; 84439; 84443; 84484; 85025; 85610; 85730; 93005; 93017; 93880; 96361; 96374; 99285; A9270; A9502; C8929; G0378; J2785; J7030; Q9957; Q9967

== ENCOUNTER 2022-12-11 14:40 | Outpatient (CLI) | payer MEDICARE, SELFPAY | END 2022-12-11 14:41 | disposition home or self-care (01) | LOC: CHSLAB 14:43 | PROVIDERS: PCP Specialist; Visit Provider Specialist | DX: D18.01 Hemangioma of skin and subcutaneous tissue (principal); L72.0 Epidermal cyst | CPT/HCPCS: 88305 ==